=== PATIENT | male | born 1965 | race Caucasian/White ===

== ENCOUNTER 2019-03-30 10:36 | Emergency (ER) | payer SELFPAY ==
[~2019-03-30] VITALS: Ht 170.2 cm; Wt 68.0 kg
[2019-03-30 10:38] VITALS: Ht 170.2 cm; Wt 68.0 kg
[2019-03-30 11:37] VITALS: BP 145/87
== END 2019-03-30 11:37 | disposition other institution (70) ==
LOC: ED 10:36
DX: S46.912A Strain of unspecified muscle, fascia and tendon at shoulder and upper arm level, left arm, initial encounter (principal); X58.XXXA Exposure to other specified factors, initial encounter; Y93.89 Activity, other specified; Y92.89 Other specified places as the place of occurrence of the external cause; Y99.8 Other external cause status
CPT/HCPCS: Q0092

== ENCOUNTER 2019-03-30 10:36 | Emergency (ER) | payer OTHER | END 2019-03-30 11:37 | disposition other institution (70) | LOC: ED 10:36 | DX: Z02.89 Encounter for other administrative examinations (principal) ==